=== PATIENT | female | born 1980 | race Caucasian/White ===

== ENCOUNTER 2025-08-19 00:29 | Emergency (ER) | payer OTHER, SELFPAY ==
[2025-08-19 00:33] VITALS: BP 136/82
[2025-08-19 00:48] LABS: Glucose - Point of Care 83 mg/dl (70-99)
[2025-08-19 00:59] VITALS: BMI 22.0
[2025-08-19] MEDS: MOTRIN 600 MG PO (01:32)
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
[2025-08-19 01:59] LABS: HCG, Serum Qualitative Screen Negative
== END 2025-08-19 06:27 ==
LOC: EMR 00:29
PROVIDERS: Physician Assistant; EMERGENCY PHYSICIAN Emergency Medicine
DX: Z02.89 Encounter for other administrative examinations (principal); Z04.41 Encounter for examination and observation following alleged adult rape; M54.50 Low back pain, unspecified; F17.200 Nicotine dependence, unspecified, uncomplicated
CPT/HCPCS: 99285; 70450; 72100; 80306; 80307; 82962; 84703

== ENCOUNTER → 2025-09-03 09:30 | Outpatient (REF) | payer OTHER, SELFPAY | LOC: WDC 09:30 | PROVIDERS: ATTENDING PHYSICIAN General Practice | DX: N63.10 Unspecified lump in the right breast, unspecified quadrant (principal); N63.20 Unspecified lump in the left breast, unspecified quadrant; N63.11 Unspecified lump in the right breast, upper outer quadrant; N63.23 Unspecified lump in the left breast, lower outer quadrant | CPT/HCPCS: 76642; 77062; 77066 ==